=== PATIENT | male | born 1990 | race Caucasian/White ===

== ENCOUNTER 2019-05-13 09:45 | Emergency (ER) | payer OTHER ==
[2019-05-13 09:49] VITALS: BP 142/91; PULSE 78; TEMP 97; BMI 27.3
--- NOTE | 2019-05-13 10:17 | PDOC ---
History of Present Illness - General Chief Complaint: Abscess Boil Stated Complaint: BLISTER ON GROIN Time Seen by Provider: 05/13/19 10:00 - History of Present Illness Initial Comments: 05/13/19 10:13 CHIEF COMPLAINT: bump to groin HISTORY OF PRESENT ILLNESS: 29 yo M presents to fast track with bump to suprapubic area today. Patient reports he noticed a "pimple" a few days ago and his girlfriend popped it, but "then it got worse today." He denies any fever , chills, vomiting, diarrhea. No recent travel or sick contacts. PAST MEDICAL HISTORY: Denies past medical history FAMILY HISTORY: Denies SOCIAL HISTORY:Denies tobacco, alcohol, illicit drug use. SURGICAL HISTORY: Denies ALLERGIES: No known drug allergies REVIEW OF SYSTEMS General/Constitutional: Denies fever or chills. Denies weakness, weight change. HEENT: Denies change in vision. Denies ear pain or discharge. Denies sore throat. Cardiovascular: Denies chest pain or shortness of breath. Respiratory: Denies cough, wheezing, or hemoptysis. Gastrointestinal: Denies nausea, vomiting, diarrhea or constipation. Denies rectal bleeding. Genitourinary: Denies dysuria, frequency, or change in urination. Musculoskeletal: Denies joint or muscle swelling or pain. Denies neck or back pain. Skin: "I had a pimple down there and it popped, but now it hurts more." Neurologic: Denies headache, vertigo, loss of consciousness, or loss of sensation. Psychiatric: Denies depression or anxiety. PHYSICAL EXAM General Appearance: Well-appearing, appropriately dressed. No apparent distress , no intoxication. HEENT: EOMI, PERRLA, normal ENT inspection, normal voice, TMs normal, pharynx normal. No conjunctival pallor. No photophobia, scleral icterus. Neck: Supple. Trachea midline. No tenderness, rigidity, carotid bruit, stridor , lymphadenopathy, or thyromegaly. Respiratory/Chest: Lungs CTAB. No shortness of breath, chest tenderness, respiratory distress, accessory muscle use. No crackles, rales, rhonchi, stridor , wheezing, dullness Cardiovascular: RRR. S1, S2. No JVD, murmur, bradycardia, tachycardia. Vascular Pulses: Dorsalis-Pedis (R): 2+, Dorsalis-Pedis (L): 2+ Gastrointestinal/Abdominal: Normal bowel sounds. Abdomen soft, non-distended. No tenderness or rebound tenderness. No organomegaly, pulsatile mass, guarding , hernia, hepatomegaly, splenomegaly. Lymphatic: No adenopathy, tenderness. Musculoskeletal/Extremities: Normal inspection. FROM of all extremities, normal capillary refill. Pelvis Stable. No CVA tenderness. No tenderness to extremities, pedal edema, swelling, erythema or deformity. Integumentary: Small indurated abscess to suprapubic region with TTP. No fluctuance, minimal drainage appreciated. Appropriate color, dry, warm. No cyanosis, erythema, jaundice or rash Neurologic: residential roofer helper II-XII intact. Fully oriented, alert. Appropriate mood/affect. Motor strength 5/5. No appreciable EOM palsy, facial droop or sensory deficit. 05/13/19 18:53 Past History - Past Medical History Allergies/Adverse Reactions: Allergies Allergy/AdvReac Type Severity Reaction Status Date / Time No Known Allergies Allergy Verified 05/13/19 09:49 Home Medications: Ambulatory Orders Sulfamethoxazole/Trimethoprim [Bactrim Ds -] 1 tab PO BID #14 tablet 05/13/19 COPD: No - Psycho Social/Smoking Cessation Hx Smoking History: Never smoked *Physical Exam - Vital Signs Last Vital Signs Temp Pulse Resp BP Pulse Ox 97 F L 78 18 142/91 99 05/13/19 09:47 05/13/19 09:47 05/13/19 09:47 05/13/19 09:47 05/13/19 09:47 Medical Decision Making - Medical Decision Making 05/13/19 18:56 29 yo M presents to fast track with bump to suprapubic area today. 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 Area of erythema circumscribed with surgical marker. -Bactrim Advised pt to take meds as prescribed and of signs and symptoms for return to ER. Patient verbalized understanding and agrees to plan. Discharge - Discharge Information Problems reviewed: Yes Clinical Impression/Diagnosis: Folliculitis, Abscess Condition: Stable Disposition: HOME - Admission No - Additional Discharge Information Prescriptions: Sulfamethoxazole/Trimethoprim [Bactrim Ds -] 1 tab PO BID #14 tablet - Follow up/Referral - Patient Discharge Instructions Patient Printed Discharge Instructions: DI for Skin Abscess - Post Discharge Activity
[2019-05-13] MEDS ORDERED: SULFAMETHOXAZOLE/TRIMETHOPRIM 800MG/160MG D.S. TABLET PO ONE (10:41)
[2019-05-13] MEDS ORDERED: SULFAMETHOXAZOLE/TRIMETHOPRIM 800MG/160MG D.S. TABLET ONE (10:47)
== END 2019-05-13 10:51 | disposition home or self-care (01) ==
LOC: JERFT 09:45
DX: L02.214 Cutaneous abscess of groin (principal); L73.8 Other specified follicular disorders
CPT/HCPCS: 99281-25